=== PATIENT | female | born 1985 ===

== ENCOUNTER 2020-10-10 14:25 | Outpatient (REF) | payer OTHER, SELFPAY ==
[2020-10-11 11:29] LABS: BV Int Neg Control Negative (Negative); BV Int Pos Control Positive (Positive)
[2020-10-14 22:52] LABS: HPV mRNA E6/E7 rflx Not Detected (Not Detected)
== END 2020-10-10 14:26 | disposition home or self-care (01) ==
LOC: HO.LAB 14:25
PROVIDERS: PCP Internal Medicine; Visit Provider Obstetrics & Gynecology
DX: Z01.419 Encounter for gynecological examination (general) (routine) without abnormal findings (principal); Z11.51 Encounter for screening for human papillomavirus (HPV); Z11.3 Encounter for screening for infections with a predominantly sexual mode of transmission
CPT/HCPCS: 36415; 87480; 87510; 87624; 87660; 88142

== ENCOUNTER → 2020-11-14 12:15 | Outpatient (BNVA) | payer OTHER, SELFPAY | PROVIDERS: PCP Internal Medicine; Visit Provider Obstetrics & Gynecology ==

== ENCOUNTER → 2021-10-12 14:28 | Outpatient (BNVA) | payer OTHER, SELFPAY | PROVIDERS: PCP Internal Medicine; Visit Provider Advanced Practice Midwife ==

== ENCOUNTER 2023-02-11 13:43 | Outpatient (REF) | payer OTHER, SELFPAY ==
[2023-02-12 05:49] LABS: CT PCR NOT DETECTED (Not Detect.); NG PCR NOT DETECTED (Not Detect.)
== END 2023-02-11 13:44 | disposition home or self-care (01) ==
LOC: HO.LNP 13:43
PROVIDERS: PCP Internal Medicine; Visit Provider Advanced Practice Midwife
DX: Z01.419 Encounter for gynecological examination (general) (routine) without abnormal findings (principal)
CPT/HCPCS: 0353U

== ENCOUNTER 2023-03-17 12:46 | Outpatient (AMB) | payer OTHER, SELFPAY ==
--- NOTE | 2023-03-17 12:46 | MHC.OFFVIS ---
Intake Intake Visit Reasons: plan of care per roxi Intake Note: cell # [phone] The patient agreed to use of a phlebotomist medical lab assistant during this encounter. Scribed for CONCETTA Ba by Michelle Givens phlebotomist medical lab assistant, on 03/17/2023 at 12:57 pm EST. Allergies prochlorperazine [From Compazine] Adverse Reaction (Verified 02/11/23 13:55) jaw locks up Is last menstrual period known: Yes Last menstrual period: 02/17/23 HPI HPI Comments History of Present Illness Details Doximity live video 12:57 PM - 1:04 PM. Phone Call due to Covid-19 Pandemic. Video was utilized. Emily presents via phone/live video to discuss plan of care re: control changes. She reports the breakthrough bleeding on Jane has resolved and is not missing her dosage anymore. She plans a future Mirena IUD, but has a new job with limited time off and is now willing to wait longer for a IUD insertion appt. that fits with her schedule. [facility] Medical History Heart murmur of Surgical History H/O heart surgery History of Family History Family/Other Breast cancer Social History Alcohol intake: never Sexual orientation: Straight/Heterosexual Gender identity: Female Female Reproductive History Menstrual Date of last menstrual period: 02/17/23 Physical Exam Const General: cooperative, healthy appearing, comfortable, no acute distress, well developed, alert and awake Assessment & Plan Assessment & Plan (1) control counseling: Code(s): Z30.09 - Encounter for other general counseling and advice on contraception Plan: Discussed: She was instructed no unprotected intimacy 14 days prior to insertion and will need to use 7 days of back up method if not inserted within the first 5 days of next period or remain on Jane. May take ibuprofen 3 tablets (200mg) w/food, 1hour prior to procedure. Pt. to schedule IUD insert appt. All of her questions and concerns were addressed to the best of my ability and shared decision making. She is agreeable to plan of care. Telehealth Telehealth Location of provider rendering services: practice address Location of patient: other Patient Identification confirmed using: Name, : Yes Telehealth method: video Patient verbally consented to treatment: Yes Patient verbally consented to billing insurance company: Yes Patient informed of any privacy concerns related to visit: Yes Coding Level of Care Code Tele New Pt Level 2 (70178) Diagnoses control counseling Z30.09 Comment If no charge is available, pt. only needed a time to talk about the appt. details
== END 2023-03-17 14:07 | disposition home or self-care (01) ==
LOC: HO.HWS 12:46
PROVIDERS: PCP Internal Medicine; Visit Provider Advanced Practice Midwife
DX: Z30.09 Encounter for other general counseling and advice on contraception (principal)
CPT/HCPCS: 99212

== ENCOUNTER → 2023-03-17 12:46 | Outpatient (BNVA) | payer OTHER, SELFPAY | PROVIDERS: PCP Internal Medicine; Visit Provider Advanced Practice Midwife ==

== ENCOUNTER 2023-09-23 13:54 | Outpatient (REF) | payer OTHER, SELFPAY ==
[2023-09-24 05:53] LABS: CT PCR NOT DETECTED (Not Detect.); NG PCR NOT DETECTED (Not Detect.)
== END 2023-09-23 13:55 | disposition home or self-care (01) ==
LOC: HO.LNP 13:54
PROVIDERS: PCP Internal Medicine; Visit Provider Advanced Practice Midwife
DX: R10.2 Pelvic and perineal pain (principal); N73.9 Female pelvic inflammatory disease, unspecified; N92.6 Irregular menstruation, unspecified
CPT/HCPCS: 0353U; 96372; J0696

== ENCOUNTER 2023-09-23 13:54 | Outpatient (AMB) | payer OTHER, SELFPAY ==
--- NOTE | 2023-09-23 14:16 | A.OFFVIS_ITS ---
Intake Vital Signs 09/23/23 14:17 Height 5 ft Weight 151 lb BMI 29.5 BP 120/78 Intake Visit Reasons: Spotting/Lower Abdomen pain Service Writer Advisor Required: No Information Interpreted: non-clinical & clinical Call Center Operations Manager: Call Center Operations Manager Present (Aletha Patrick RONNIE) Accompanied by: Self / Same As Patient Allergies prochlorperazine [From Compazine] Adverse Reaction (Verified 09/23/23 14:23) jaw locks up Is last menstrual period known: Yes Last menstrual period: 07/16/23 HPI HPI Comments History of Present Illness Details Patient is here today with complaints of sudden lower pelvic pain/cramping with unusual spotting she reports taking her pill 1 hour late a week ago but the bleeding was started week prior to that. She denies any urinary symptoms. No fever flu-like symptoms chills. PFSH Medical History Heart murmur of Surgical History H/O heart surgery History of Family History Family/Other Breast cancer Social History Alcohol intake: never Sexual orientation: Straight/Heterosexual Gender identity: Female Female Reproductive History Menstrual Date of last menstrual period: 07/16/23 Review of Systems Const All systems reviewed & are unremarkable except as noted in HPI and below Physical Exam Vital Signs: Last Vital Signs BP 120/78 09/23/23 14:17 BMI result Body Mass Index 29.5 Const General: cooperative, healthy appearing and no acute distress Orientation/consciousness: patient oriented x3 GI Inspection: Yes normal to inspection Palpation (GI): Soft to palpation and Other GI palpation findings present (Nontender) Rectal Exam - Female: visual inspection normal General: Yes bladder normal to palpation External Female Exam: normal appearance of the urethra Speculum Exam - Vagina: normal appearance of the vagina, normal palpation and normal vaginal discharge (Heavy white thickened creamy) Speculum Exam - Cervix: normal appearance of the cervix, normal palpation and Cervical tenderness present Bimanual exam- vagina & uterus: normal bimanual exam, normal palpation, uterine size normal, bladder normal to palpation, normal palpation, uterine shape normal, Cervical tenderness present and Uterine tenderness Bimanual Exam- Adnexa, other: normal adnexae Neuro General: patient oriented x3 Office Meds ceftriaxone 500 mg solution for injection Performing Provider: Roxi Lazo CNM Performing Location: [facility] Administered by: Nguyen Sierra on 09/23/23 14:59 Dose Route Admin Location Dispensed Lot Number Expiration Date [facility] Detail Sergeant 500 mg IM RGM 500 mg [id number] 09/04/25 3103-8990-23 HOSPIRA/PFIZER Assessment & Plan Assessment & Plan (1) Pelvic inflammatory disease (PID): Code(s): N73.9 - Female pelvic inflammatory disease, unspecified Plan Discussed: Plan of care/treatment. Cultures obtained. Treatment protocol for Pelvic Inflammatory Disease (PID) per [facility] guidelines including; Ceftriaxone IM in office and additional oral meds: Doxycycline and Flagyl for two week. Or alternative if allergies. Discuss med warnings and usage. Advised to call if any worsening symptoms, increased pain, fever over 100.4, flu like symptoms, chills, lightheadedness, dizziness, report immediately to the ED. Medication instructions reviewed, take as directed and complete all medications. Flagyl med use and warnings provided. Pelvic Rest: nothing in the vagina, no intimacy. You may take OTC mild analgesic as directed for discomforts. Pelvic recheck appointment 2-3 days. All questions and concerns answered to the best of my ability. She is agreeable to the plan of care. This note is constructed using voice recognition software. While every effort has been made to ensure accuracy, traffic attendant errors may have been included. Orders: Orders CT NG by PCR Today N73.9 - Female pelvic inflammatory disease, unspecified, N92.6 - Irregular menstruation, unspecified, R10.2 - Pelvic and perineal pain US pelvic and transvaginal Today N73.9 - Female pelvic inflammatory disease, unspecified AMB Ceftriaxone Injection Today N73.9 - Female pelvic inflammatory disease, unspecified, N92.6 - Irregular menstruation, unspecified Medications: New doxycycline hyclate 100 mg PO BID 28 caps 0RF 14 days metronidazole 500 mg PO BID 28 tabs 0RF 14 days Coding Level of Care Code Est Pt Level 4 (38047) Diagnoses Pelvic inflammatory disease (PID) N73.9
[2023-09-23 14:17] VITALS: BP 120/78; BMI 29.5
== END 2023-09-23 15:20 | disposition home or self-care (01) ==
PROVIDERS: PCP Internal Medicine; Visit Provider Advanced Practice Midwife
DX: N73.9 Female pelvic inflammatory disease, unspecified (principal); N92.6 Irregular menstruation, unspecified
CPT/HCPCS: 99214

== ENCOUNTER 2023-09-23 15:23 | Outpatient (REF) | payer OTHER, SELFPAY ==
--- NOTE | ~2023-09-23 | US_ITS ---
EXAMINATION: US PELVIS CLINICAL INFORMATION: Female pelvic inflammatory disease. COMPARISON: None available. TECHNIQUE: Ultrasound of the pelvis is performed using both transabdominal and transvaginal transducers along with Doppler. Transvaginal imaging is performed due to inadequate visualization transabdominally. FINDINGS: Uterus: The uterus is anteverted and measures 10.4 x 3.9 x 5.3 cm and volume 112.5 mL. The double wall endometrial thickness is 0.2 cm. The uterus is smooth in contour and has normal myometrial echogenicity. No visible fibroid. Adnexa: Both ovaries are visualized. There is normal color flow to the adnexa. There is no ovarian torsion. There is no pelvic ascites or fluid collection. Right ovary measures 2.8 x 1.9 x 1.9 cm and volume 5.0 mL. It appears unremarkable. Left ovary measures 2.5 2.0 x 2.1 cm and volume 5.5 mL. There is no free fluid in the cul-de-sac. US/US pelvic and transvaginal IMPRESSION: Unremarkable uterus and ovaries. There is no free fluid in the cul-de-sac.
== END 2023-09-23 15:24 | disposition home or self-care (01) ==
LOC: HO.US 15:23
PROVIDERS: PCP Internal Medicine; Visit Provider Advanced Practice Midwife
DX: N73.9 Female pelvic inflammatory disease, unspecified (principal)
CPT/HCPCS: 76830; 76856

== ENCOUNTER 2023-09-27 15:26 | Outpatient (AMB) | payer OTHER, SELFPAY ==
--- NOTE | 2023-09-27 15:31 | A.OFFVIS_ITS ---
Intake Vital Signs 09/27/23 15:35 Height 5 ft BP 110/66 Intake Visit Reasons: follow up per [facility] Intake Note: patient states not able to tolerate antibiotics Allergies prochlorperazine [From Compazine] Adverse Reaction (Verified 09/27/23 15:31) jaw locks up HPI HPI Comments History of Present Illness Details Patient is here for follow-up pelvic exam following a diagnosis of PID. She is currently taking her antibiotics and reports some nausea and vomiting, she is trying to also correct some bloating and constipation with some [id number] self-help remedies. She reports feeling better with the the pelvic pain today. [facility] Medical History Heart murmur of Surgical History H/O heart surgery History of Family History Family/Other Breast cancer Social History Alcohol intake: never Sexual orientation: Straight/Heterosexual Gender identity: Female Review of Systems Const All systems reviewed & are unremarkable except as noted in HPI and below Physical Exam Vital Signs: Last Vital Signs BP 110/66 09/27/23 15:35 Const General: cooperative, healthy appearing and no acute distress Orientation/consciousness: patient oriented x3 GI Inspection: Yes normal to inspection Palpation (GI): Soft to palpation and Other GI palpation findings present (Nontender) Rectal Exam - Female: visual inspection normal General: Yes bladder normal to palpation External Female Exam: normal appearance of the urethra Speculum Exam - Vagina: normal appearance of the vagina, normal palpation and normal vaginal discharge Speculum Exam - Cervix: normal appearance of the cervix and normal palpation Bimanual exam- vagina & uterus: normal bimanual exam, normal palpation, uterine size normal, bladder normal to palpation, normal palpation, uterine shape normal and non-tender Bimanual Exam- Adnexa, other: normal adnexae Neuro General: patient oriented x3 Assessment & Plan Assessment & Plan (1) Pelvic inflammatory disease (PID): Code(s): N73.9 - Female pelvic inflammatory disease, unspecified Plan Rx for Zofran sent to counseled about timing the dose and then taking the antibiotics with food. Call if there is any concerns keep follow-up 2 week as planned. Hydrate well, increase fiber and other self-help measures to prevent constipation and bloating. Starting probiotics for good health also. Medications: New ondansetron 4 mg PO QID PRN 20 tabs 0RF nausea and vomiting Coding Level of Care Code Est Pt Level 3 (80393) Diagnoses Pelvic inflammatory disease (PID) N73.9
[2023-09-27 15:35] VITALS: BP 110/66
== END 2023-09-27 16:11 | disposition home or self-care (01) ==
LOC: HO.HWS 15:26
PROVIDERS: PCP Internal Medicine; Visit Provider Advanced Practice Midwife
DX: N73.9 Female pelvic inflammatory disease, unspecified (principal)
CPT/HCPCS: 99213

== ENCOUNTER → 2023-09-27 15:26 | Outpatient (BNVA) | payer OTHER, SELFPAY | PROVIDERS: PCP Internal Medicine; Visit Provider Advanced Practice Midwife ==

== ENCOUNTER 2023-10-13 15:39 | Outpatient (AMB) | payer OTHER, SELFPAY ==
--- NOTE | 2023-10-13 15:41 | MHC.OFFVIS ---
Intake Vital Signs 10/13/23 15:44 Height 5 ft Weight 151 lb BMI 29.5 BP 110/74 Intake Visit Reasons: pelvic recheck per [place] Sustainability Consultant: Sustainability Consultant Present (Carlota) Allergies prochlorperazine [From Compazine] Adverse Reaction (Verified 10/13/23 15:41) jaw locks up Is last menstrual period known: Yes Last menstrual period: 10/12/23 HPI HPI Comments History of Present Illness Details Patient is here for a follow up pelvic rechecked to to the history of recent treatment for PID. She is finished her antibiotics and reports she is feeling much better. She has end of her cycle currently she reports this cycle was much heavier more crampy than her usual. Currently taking [place] without any concerns for missed pills. She is interested in the Mirena IUD and has questions regarding the device today. [facility] Medical History Heart murmur of Surgical History H/O heart surgery History of Family History Family/Other Breast cancer Social History Alcohol intake: never Sexual orientation: Straight/Heterosexual Gender identity: Female Female Reproductive History Menstrual Date of last menstrual period: 10/12/23 Review of Systems Const All systems reviewed & are unremarkable except as noted in HPI and below Physical Exam Vital Signs: Last Vital Signs BP 110/74 10/13/23 15:44 BMI result Body Mass Index 29.5 Const General: cooperative, healthy appearing and no acute distress Orientation/consciousness: patient oriented x3 GI Inspection: Yes normal to inspection Palpation (GI): Soft to palpation and Other GI palpation findings present (Nontender) Rectal Exam - Female: visual inspection normal General: Yes bladder normal to palpation External Female Exam: normal appearance of the urethra Speculum Exam - Vagina: normal appearance of the vagina, normal palpation and normal vaginal discharge Speculum Exam - Cervix: normal appearance of the cervix and normal palpation Bimanual exam- vagina & uterus: normal bimanual exam, normal palpation, uterine size normal, bladder normal to palpation, normal palpation, uterine shape normal and non-tender Bimanual Exam- Adnexa, other: normal adnexae Neuro General: patient oriented x3 Assessment & Plan Assessment & Plan (1) Pelvic inflammatory disease (PID): Code(s): N73.9 - Female pelvic inflammatory disease, unspecified Plan Discussed the Mirena IUD options for insertion, due to being currently on control can call for an appointment when ready to have inserted. Return to the office for annual exam in [place] or p.r.n. as needed This note is constructed using voice recognition software. While every effort has been made to ensure accuracy, agricultural commodities grader errors may have been included. Coding Level of Care Code Est Pt Level 3 (44529) Diagnoses Pelvic inflammatory disease (PID) N73.9
[2023-10-13 15:44] VITALS: BP 110/74; BMI 29.5
== END 2023-10-13 16:03 | disposition home or self-care (01) ==
LOC: HO.HWS 15:39
PROVIDERS: PCP Internal Medicine; Visit Provider Advanced Practice Midwife
DX: N73.9 Female pelvic inflammatory disease, unspecified (principal)
CPT/HCPCS: 99213

== ENCOUNTER → 2023-10-13 15:39 | Outpatient (BNVA) | payer OTHER, SELFPAY | PROVIDERS: PCP Internal Medicine; Visit Provider Advanced Practice Midwife ==

== ENCOUNTER 2024-05-31 15:12 | Outpatient (REF) | payer OTHER, SELFPAY ==
[2024-06-01 11:07] LABS: Bacterial Vaginosis PCR NEGATIVE (Negative); Candida Group PCR NOT DETECTED (Not Detect); Candida glab krusei PCR NOT DETECTED (Not Detect); Trichomonas vaginalis PCR NOT DETECTED (Not Detect)
== END 2024-05-31 15:13 | disposition home or self-care (01) ==
LOC: HO.LAB 15:12
PROVIDERS: PCP Internal Medicine; Visit Provider Advanced Practice Midwife
DX: N89.8 Other specified noninflammatory disorders of vagina (principal)
CPT/HCPCS: 0352U

== ENCOUNTER 2024-05-31 15:12 | Outpatient (AMB) | payer OTHER, SELFPAY ==
--- NOTE | 2024-05-31 15:16 | MHC.OFFVIS ---
Vital Signs 05/31/24 15:19 Height 5 ft Weight 163 lb BMI 31.8 BP 110/70 Intake Visit Reasons: ETHICS OFFICER annual exam Insulation Worker Interior Surface: Insulation Worker Interior Surface Present (Carlota) Allergies prochlorperazine [From Compazine] Adverse Reaction (Verified 05/31/24 15:16) jaw locks up Is last menstrual period known: Yes Last menstrual period: 05/17/24 HPI Comments Details: She is a premenopausal woman presenting for annual examination. Doing well with no concerns. She tries to eat healthy and stays active with exercise. Currently using Jeannie, has some unscheduled bleeding randomly. Currently is sexually active. She denies vaginal itching and irritation. Family history sister age 31 this year diagnosed with breast cancer she is unsure if she has had BRCA testing. Last pap smear 2020, negative. Mammogram: Done in this March she reports is negative no hard copy here from [facility]. [facility] Medical History Heart murmur of Surgical History H/O heart surgery History of Family History Family/Other Breast cancer Sister Breast cancer Brain cancer, Onset Age: 31 Social History Alcohol intake: never Sexual orientation: Straight/Heterosexual Gender identity: Female Female Reproductive History Menstrual Duration of menses: 3-5 days Date of last menstrual period: 05/17/24 control method: pills Total pregnancies: 2 Full term: 1 Number of Living Children: 1 Date of last pap smear: 10/10/20 (neg pap and hpv) Review of Systems Const All systems reviewed & are unremarkable except as noted in HPI and below Reports as per HPI Eyes Reports no additional complaints ENT Reports no additional complaints Card Reports no additional complaints Resp Reports no additional complaints GI Reports as per HPI and Reports no additional complaints Reports as per HPI Musc Reports no additional complaints Skin/Breast Reports as per HPI Neuro Reports no additional complaints Psych Reports no additional complaints Endo Reports no additional complaints Raji/Lymph Reports no additional complaints Aller/Immun Reports no additional complaints Physical Exam Vital Signs: Last Vital Signs BP 110/70 05/31/24 15:19 BMI result Body Mass Index 31.8 Const General: cooperative, healthy appearing, no acute distress, well developed and alert Orientation/consciousness: patient oriented x3 HEENT Head: Yes normal to inspection Eyes General: appearance normal, both eyes and all related structures Neck Neck: Yes normal visual inspection Thyroid: Thyroid normal Chest Chest palpation & inspection: normal inspection of the chest and other (no puckering, dimpling, peau de orange, retraction, discharge, masses) Breast/axilla inspection: normal inspection of the breasts Breast/axilla palpation: normal palpation of the breasts Resp Effort & Inspection: normal respiratory effort GI Inspection: Yes normal to inspection and Yes scar Palpation (GI): Soft to palpation Rectal Exam - Female: deferred General: Yes bladder normal to palpation External Female Exam: normal external appearance and normal appearance of the urethra Speculum Exam - Vagina: normal appearance of the vagina, normal palpation and abnormal vaginal discharge (Very heavy thick discharge) Speculum Exam - Cervix: normal appearance of the cervix, normal palpation and Other cervical findings present (Anterior position difficult to reach with speculum) Bimanual exam- vagina & uterus: normal bimanual exam, normal palpation, uterine size normal, bladder normal to palpation, normal palpation and non-tender Bimanual Exam- Adnexa, other: no masses Skin General skin exam: no rashes or lesions noted Rashes: no rashes Neuro General: patient oriented x3 Cognition (Neuro): normal cognition Extrem General: Yes normal to inspection Psych Attitude: cooperative Thought process: Normal thought process present Assessment & Plan Assessment & Plan (1) Encounter for well woman exam with routine gynecological exam: Code(s): Z01.419 - Encounter for gynecological examination (general) (routine) without abnormal findings Category: Medical Plan: Discussed: Current recommendations for pap smears per ASCCP guidelines. Breast awareness and periodic breast exams. BV panel obtained due to unusually heavy thick discharge. Maintain a healthy lifestyle including a well balanced diet and routine exercise. Consider BRCA testing, advised to speak with her primary care as she could do testing [facility]. Mammogram yearly. Sign a release for [facility] notable for copy of mammogram, and request copy to be sent here in the future. control options may consider an IUD in the future currently will monitor bleeding and if she has concerns she will follow up in the office sooner. Advised to do home test if unusual bleeding patterns, she agrees and reports that she does this already. Patient verbalizes understanding and agrees to the plan of care. She was given opportunity to ask questions and all questions were answered to the best of my ability. RTO in one year for annual sausage maker examination. This note is constructed using voice recognition software. While every effort has been made to ensure accuracy, weatherization administrator errors may have been included. Orders: Orders Bacterial Vaginosis Panel Today N89.8 - Other specified noninflammatory disorders of vagina Coding Level of Care Code Est Pt Prev Care 40-64y(98765) Diagnoses Encounter for well woman exam with routine gynecological exam Z01.419
[2024-05-31 15:19] VITALS: BP 110/70; BMI 31.8
== END 2024-05-31 16:08 | disposition home or self-care (01) ==
PROVIDERS: PCP Internal Medicine; Visit Provider Advanced Practice Midwife
DX: Z01.419 Encounter for gynecological examination (general) (routine) without abnormal findings (principal)
CPT/HCPCS: 99396